=== PATIENT | female | born 1940 | race Caucasian/White ===

== ENCOUNTER 2018-04-05 08:38 | Emergency (ER) | payer OTHER ==
[~2018-04-05] VITALS: Ht 162.6 cm; Wt 131.5 kg
[~2018-04-05 08:38] MED LIST: FLAGYL500 MG PO; LEVAQUIN500 MG PO
[2018-04-05] MEDS: ALBUTEROL SULF 0.083% NEB SOLN 3 ML NEB NEB STA (09:42)
[2018-04-05 09:48] LABS: BASOPHILS # (AUTO) 0.1 (0.0-0.1); BASOPHILS % 0.7 % (0.0-1.0); EOSINOPHILS # (AUTO) 0.3 (0.0-0.4); EOSINOPHILS % 2.3 % (0.0-6.0); HEMATOCRIT 33.2 % (34.2-44.1); HEMOGLOBIN 10.5 g/dL (12.0-16.0); LYMPHOCYTES # (AUTO) 2.2 (1.0-3.2); LYMPHOCYTES % 19.3 % (18.0-39.1); MEAN CORPUSCULAR HEMOGLOBIN 24.9 pg (28-32); MEAN CORPUSCULAR HGB CONC 31.6 g/dL (31-35); MEAN CORPUSCULAR VOLUME 78.7 fL (81-99); MONOCYTES # (AUTO) 0.8 (0.2-0.8); MONOCYTES % 7.3 % (4.4-11.3); NEUTROPHILS # (AUTO) 7.8 (2.1-6.9); NEUTROPHILS % 70.1 % (38.7-80.0); PLATELET COUNT 245 x10e3/uL (140-360); RED BLOOD COUNT 4.22 x10e6/uL (3.6-5.1); RED CELL DISTRIBUTION WIDTH 14.8 % (11.7-14.4)
--- NOTE | 2018-04-05 09:49 | Diagnostic Imaging Report ---
PROCEDURE: CHEST SINGLE (PORTABLE) COMPARISON: 09/13/2017. INDICATIONS: COUGH FINDINGS: The lungs are well-inflated. No focal airspace consolidation, pleural effusion, or pneumothorax. Stable cardiomediastinal contour with mild tortuosity of the thoracic aorta, unchanged. No pulmonary edema. No acute osseous abnormality. CONCLUSION: No acute cardiopulmonary abnormality. Dictated by: Pieter Crowley M.D. on 04/05/2018 at 9:53 Electronically approved by: Pieter Crowley M.D. on 04/05/2018 at 9:53
[2018-04-05 09:55] LABS: INR 1.39
[2018-04-05 09:56] LABS: PARTIAL THROMBOPLASTIN TIME 31.3 seconds (23.8-35.5)
[2018-04-05 10:03] LABS: ALANINE AMINOTRANSFERASE 10 IU/L (0-55); ALBUMIN 3.1 g/dL (3.5-5.0); ALBUMIN/GLOBULIN RATIO 0.9 (0.8-2.0); ALKALINE PHOSPHATASE 76 IU/L (40-150); ANION GAP 13.3 mmol/L (8-16); BLOOD UREA NITROGEN 15 mg/dL (7-26); BUN/CREATININE RATIO 16 (6-25); CALCIUM 9.1 mg/dL (8.4-10.2); CARBON DIOXIDE 27 mmol/L (22-29); CHLORIDE 101 mmol/L (98-107); CREATINE KINASE 31 IU/L (29-168); CREATININE, SERUM 0.93 mg/dL (0.57-1.11); EST GLOMERULAR FILTRATION RATE 59 ML/MIN (60-); GLUCOSE 135 mg/dL (74-118); MAGNESIUM 1.7 MG/DL (1.3-2.1); POTASSIUM 4.3 mmol/L (3.5-5.1); SODIUM 137 mmol/L (136-145)
[2018-04-05 10:36] LABS: CLARITY,URINE CLEAR (CLEAR); COLOR,URINE YELLOW (YELLOW); KETONES,URINE NEGATIVE (NEGATIVE); LEUKOCYTE ESTERASE ,URINE NEGATIVE (NEGATIVE); NITRITE,URINE NEGATIVE (NEGATIVE); PROTEIN,URINE DIPSTICK NEGATIVE (NEGATIVE); URINE UROBILINOGEN 0.2 mg/dL (0.2 - 1)
[2018-04-05 10:37] LABS: BILIRUBIN,URINE NEGATIVE (NEGATIVE)
[2018-04-05 11:13] VITALS: BP 135/52
[2018-04-05 11:17] LABS: EPITHELIAL CELLS,URINE FEW /LPF; RBC,URINE 0-5 /HPF (0-5)
== END 2018-04-05 11:25 | disposition home or self-care (01) ==
LOC: ER 08:38
DX: R06.09 Other forms of dyspnea (principal); R05 Cough; J20.9 Acute bronchitis, unspecified; I50.9 Heart failure, unspecified; Z87.01 Personal history of pneumonia (recurrent)
CPT/HCPCS: 36415; 71045; 80053; 81001; 82550; 82553; 83735; 83880; 84484; 85025; 85610; 85730; 87040; 93005; 94640; 99284

== ENCOUNTER 2018-07-20 13:35 | Inpatient (IN) | payer OTHER ==
[~2018-07-20] VITALS: Ht 162.6 cm; Wt 146.1 kg
[2018-07-20 15:20] LABS: BASOPHILS # (AUTO) 0.1 (0.0-0.1); BASOPHILS % 0.5 % (0.0-1.0); EOSINOPHILS # (AUTO) 0.2 (0.0-0.4); EOSINOPHILS % 2.4 % (0.0-6.0); HEMATOCRIT 32.3 % (34.2-44.1); HEMOGLOBIN 9.9 g/dL (12.0-16.0); LYMPHOCYTES # (AUTO) 1.5 (1.0-3.2); MEAN CORPUSCULAR HEMOGLOBIN 23.1 pg (28-32); MEAN CORPUSCULAR HGB CONC 30.7 g/dL (31-35); MEAN CORPUSCULAR VOLUME 75.3 fL (81-99); MONOCYTES # (AUTO) 0.7 (0.2-0.8); MONOCYTES % 7.4 % (4.4-11.3); NEUTROPHILS # (AUTO) 7.3 (2.1-6.9); NEUTROPHILS % 74.3 % (38.7-80.0); PLATELET COUNT 432 x10e3/uL (140-360); RED BLOOD COUNT 4.29 x10e6/uL (3.6-5.1)
[2018-07-20 15:30] LABS: INR 1.04; PROTHROMBIN TIME 14.5 seconds (11.9-14.5)
[2018-07-20 15:31] LABS: PARTIAL THROMBOPLASTIN TIME 30.9 seconds (23.8-35.5)
[2018-07-20 15:42] LABS: ALANINE AMINOTRANSFERASE 10 IU/L (0-55); ALBUMIN 2.8 g/dL (3.5-5.0); ALBUMIN/GLOBULIN RATIO 0.8 (0.8-2.0); ALKALINE PHOSPHATASE 54 IU/L (40-150); AMYLASE 52 U/L (25-125); ANION GAP 13.9 mmol/L (8-16); BLOOD UREA NITROGEN 19 mg/dL (7-26); BUN/CREATININE RATIO 22 (6-25); CALCIUM 9.3 mg/dL (8.4-10.2); CARBON DIOXIDE 25 mmol/L (22-29); CHLORIDE 100 mmol/L (98-107); CREATINE KINASE 29 IU/L (29-168); CREATININE, SERUM 0.85 mg/dL (0.57-1.11); EST GLOMERULAR FILTRATION RATE > 60 ML/MIN (60-); GLUCOSE 129 mg/dL (74-118); LIPASE 19 U/L (8-78); MAGNESIUM 1.6 MG/DL (1.3-2.1); POTASSIUM 3.9 mmol/L (3.5-5.1); SODIUM 135 mmol/L (136-145)
--- NOTE | 2018-07-20 17:42 | Diagnostic Imaging Report ---
Examination: Single AP view of the chest. COMPARISON: None. INDICATION: Chest pain DISCUSSION: Lines/tubes: None. Lungs: Central pulmonary venous congestion. Nodular opacities in the right lung. Pleura: There is no pleural effusion or pneumothorax. Heart and mediastinum: Cardiomegaly. Bones and soft tissues: No acute bony abnormalities. Degenerative changes in the thoracic spine. IMPRESSION: 1. Cardiomegaly with central venous congestion. 2. Scattered pulmonary nodules in the right lung. Signed by: Dr. Sam Jin M.D. on 07/20/2018 5:38 PM
--- NOTE | 2018-07-20 17:51 | Diagnostic Imaging Report ---
EXAMINATION: CT of the abdomen and pelvis without contrast. TECHNIQUE: Helical CT images of the abdomen and pelvis were performed from the lung bases to the lesser trochanters. No intravenous contrast was given per request. Positive enteric contrast. Coronal and sagittal reformatted images were obtained.Dose modulation, iterative reconstruction, and/or weight based adjustment of the mA/kV was utilized to reduce the radiation dose to as low as reasonably achievable. COMPARISON: None. CLINICAL HISTORY:Stomach pain DISCUSSION: ABSENCE OF INTRAVENOUS CONTRAST DECREASES SENSITIVITY FOR DETECTION OF FOCAL LESIONS AND VASCULAR PATHOLOGY. ABDOMEN/PELVIS: LOWER THORAX: 1 cm right lower lobe nodule 7 cm left lower lobe nodular consolidation. Additional smaller nodules. HEPATOBILIARY:Hepatic cysts in the right lobe, largest 2.6 cm. Gallbladder absent. SPLEEN: No splenomegaly. PANCREAS: No focal masses or ductal dilatation. ADRENALS: No adrenal nodules. KIDNEYS/URETERS: Punctate right renal calculus. No obstruction. No solid mass. PELVIC ORGANS/BLADDER: Bladder is decompressed. Prior hysterectomy. PERITONEUM/RETROPERITONEUM: Large volume ascites. LYMPH NODES: No intra-abdominal,retroperitoneal, pelvic or inguinal lymphadenopathy. VESSELS: Vascular calcifications. GI TRACT: Left lower quadrant colostomy with prior sigmoid resection. Enteric contrast within the stomach and small bowel. No contrast within the colon. BONES AND SOFT TISSUES: No bony destructive lesions. No soft tissue abnormalities. IMPRESSION: Limited computed tomography scan Large volume ascites. Partial colonic resection with left lower quadrant colostomy. No obstruction. Scattered pulmonary nodules. Dedicated CT of the chest, nonemergent recommended. Signed by: Dr. Sam Jin M.D. on 07/20/2018 5:48 PM
[2018-07-20] MEDS ORDERED: DEXTROSE 50% SYRINGE 50 ML IV PRN (20:00)
[2018-07-20] MEDS ORDERED: ONDANSETRON HCL INJ 2 MG/ML VIAL IV PRN (20:00)
[2018-07-20] MEDS ORDERED: FENTANYL CITRATE/PF 100MCG/2 ML INJ IV PRN (20:00)
[2018-07-20] MEDS ORDERED: HYDROCODONE/APAP 5MG-325MG TAB PO PRN (20:00)
[2018-07-20] MEDS ORDERED: ALPRAZOLAM0.5 M1 PO (20:01)
[2018-07-20] MEDS ORDERED: LEVOTHYROXINE50 MCG PO (20:02)
[2018-07-20] MEDS ORDERED: ELIQUIS PO (20:02)
[2018-07-20] MEDS ORDERED: PANTOPRAZOLE SO40 MG PO (20:03)
[2018-07-20] MEDS ORDERED: MIRALAX17 GM PO (20:03)
[2018-07-20] MEDS ORDERED: SERTRALINE HCL50 MG PO (20:04)
[2018-07-20] MEDS ORDERED: POTASSIUM CHLO10 ME1 PO (20:04)
[2018-07-20] MEDS: INSULIN REGULAR, HUMAN 100 UNIT/1 ML 3ML VIAL SQ SCH (21:00)
[2018-07-20] MEDS: SODIUM CHLORIDE 0.9% 1000ML 1,000 ML IV SCH ×2 (21:02→22:06)
[2018-07-20 22:15] VITALS: BP 148/74
[2018-07-21] VITALS (8 sets, daily range): BP systolic 132–148; BP diastolic 59–74
[2018-07-21] MEDS: LEVOTHYROXINE SODIUM 50 MCG TAB PO SCH (01:00)
[2018-07-21 05:21] LABS: BASOPHILS # (AUTO) 0.1 (0.0-0.1); BASOPHILS % 0.5 % (0.0-1.0); EOSINOPHILS # (AUTO) 0.2 (0.0-0.4); EOSINOPHILS % 2.5 % (0.0-6.0); HEMATOCRIT 30.5 % (34.2-44.1); HEMOGLOBIN 9.2 g/dL (12.0-16.0); LYMPHOCYTES # (AUTO) 1.9 (1.0-3.2); LYMPHOCYTES % 19.3 % (18.0-39.1); MEAN CORPUSCULAR HEMOGLOBIN 23.1 pg (28-32); MEAN CORPUSCULAR HGB CONC 30.2 g/dL (31-35); MEAN CORPUSCULAR VOLUME 76.6 fL (81-99); MONOCYTES # (AUTO) 0.9 (0.2-0.8); MONOCYTES % 9.3 % (4.4-11.3); NEUTROPHILS # (AUTO) 6.6 (2.1-6.9); NEUTROPHILS % 68.1 % (38.7-80.0); PLATELET COUNT 388 x10e3/uL (140-360); RED BLOOD COUNT 3.98 x10e6/uL (3.6-5.1); RED CELL DISTRIBUTION WIDTH 16.7 % (11.7-14.4)
[2018-07-21 05:50] LABS: ALANINE AMINOTRANSFERASE 7 IU/L (0-55); ALBUMIN 2.6 g/dL (3.5-5.0); ALBUMIN/GLOBULIN RATIO 0.8 (0.8-2.0); ALKALINE PHOSPHATASE 47 IU/L (40-150); AMYLASE 40 U/L (25-125); ANION GAP 12.9 mmol/L (8-16); BLOOD UREA NITROGEN 19 mg/dL (7-26); BUN/CREATININE RATIO 23 (6-25); CALCIUM 8.7 mg/dL (8.4-10.2); CARBON DIOXIDE 24 mmol/L (22-29); CHLORIDE 102 mmol/L (98-107); CREATININE, SERUM 0.82 mg/dL (0.57-1.11); EST GLOMERULAR FILTRATION RATE > 60 ML/MIN (60-); GLUCOSE 112 mg/dL (74-118); LIPASE 12 U/L (8-78); POTASSIUM 3.9 mmol/L (3.5-5.1); SODIUM 135 mmol/L (136-145)
[2018-07-21] MEDS: INSULIN REGULAR, HUMAN 100 UNIT/1 ML 3ML VIAL SQ SCH ×2 (07:30→11:30)
[2018-07-21] MEDS: SERTRALINE HCL 50 MG TAB PO SCH (08:33)
[2018-07-21] MEDS: PANTOPRAZOLE SOD 40 MG TABEC PO SCH (08:33)
[2018-07-21] MEDS ORDERED: POTASSIUM CHLORIDE 10MEQ EA PO SCH (09:00)
[2018-07-21] MEDS ORDERED: NON-FORMULARY MEDICATION ([Eliquis] 5 MG) PO SCH (09:00)
[2018-07-21] MEDS ORDERED: POLYETHYLENE GLYCOL 3350 17 GM PACK PO SCH (09:00)
[2018-07-21] MEDS ORDERED: APIXABAN 5 MG TABLET PO SCH (09:00)
[2018-07-21] MEDS ORDERED: DEXTROSE 5%/0.9% SOD CHL 1,000 ML IV SCH (12:45)
[2018-07-21] MEDS ORDERED: FUROSEMIDE 40 MG TAB PO ONE (13:00)
[2018-07-21] MEDS: CARVEDILOL 3.125 MG TAB PO SCH (17:07)
[2018-07-21] MEDS: HYDROCODONE/APAP 5MG-325MG TAB PO PRN ×2 (19:00→19:30)
--- NOTE | 2018-07-21 21:06 | Diagnostic Imaging Report ---
Exam: Abdominal film Clinical History: Abdominal pain, ascites Comparison: None. DISCUSSION: No bowel obstruction. Enteric contrast present including within the colon. Abdominal ascites. IMPRESSION: 1. Enteric contrast within the small bowel and colon. 2. Abdominal and pelvic ascites. Signed by: Dr. Sam Jin M.D. on 07/21/2018 9:03 PM
[2018-07-22] VITALS (8 sets, daily range): BP systolic 112–171; BP diastolic 54–70
[2018-07-22] MEDS: LEVOTHYROXINE SODIUM 50 MCG TAB PO SCH (04:56)
[2018-07-22 05:45] LABS: BASOPHILS # (AUTO) 0.1 (0.0-0.1); BASOPHILS % 0.6 % (0.0-1.0); EOSINOPHILS # (AUTO) 0.3 (0.0-0.4); EOSINOPHILS % 3.3 % (0.0-6.0); HEMATOCRIT 30.2 % (34.2-44.1); HEMOGLOBIN 9.3 g/dL (12.0-16.0); LYMPHOCYTES # (AUTO) 1.6 (1.0-3.2); LYMPHOCYTES % 19.1 % (18.0-39.1); MEAN CORPUSCULAR HEMOGLOBIN 23.1 pg (28-32); MEAN CORPUSCULAR HGB CONC 30.8 g/dL (31-35); MEAN CORPUSCULAR VOLUME 74.9 fL (81-99); MONOCYTES # (AUTO) 0.9 (0.2-0.8); MONOCYTES % 9.9 % (4.4-11.3); NEUTROPHILS # (AUTO) 5.7 (2.1-6.9); NEUTROPHILS % 66.6 % (38.7-80.0); PLATELET COUNT 419 x10e3/uL (140-360); RED BLOOD COUNT 4.03 x10e6/uL (3.6-5.1); RED CELL DISTRIBUTION WIDTH 16.7 % (11.7-14.4)
[2018-07-22 06:01] LABS: ANION GAP 14.7 mmol/L (8-16); BLOOD UREA NITROGEN 18 mg/dL (7-26); BUN/CREATININE RATIO 23 (6-25); CALCIUM 8.7 mg/dL (8.4-10.2); CARBON DIOXIDE 23 mmol/L (22-29); CHLORIDE 103 mmol/L (98-107); CREATININE, SERUM 0.78 mg/dL (0.57-1.11); EST GLOMERULAR FILTRATION RATE > 60 ML/MIN (60-); GLUCOSE 107 mg/dL (74-118); MAGNESIUM 1.5 MG/DL (1.3-2.1); POTASSIUM 3.7 mmol/L (3.5-5.1); SODIUM 137 mmol/L (136-145)
[2018-07-22 06:22] LABS: THYROID STIMULATING HORMONE 8.262 uIU/mL (0.350-4.940)
[2018-07-22 06:26] LABS: % IRON SATURATION 6 % (15-50); IRON 18 ug/dL (50-170); TOTAL IRON BINDING CAPACITY 300 ug/dL (261-478); TRANSFERRIN 214 mg/dL (180-382)
[2018-07-22] MEDS: CARVEDILOL 3.125 MG TAB PO SCH ×2 (08:28→17:00)
[2018-07-22] MEDS: ASPIRIN 81 MG ENTERIC COATED PO SCH (08:43)
[2018-07-22] MEDS: SERTRALINE HCL 50 MG TAB PO SCH (08:44)
[2018-07-22] MEDS: PANTOPRAZOLE SOD 40 MG TABEC PO SCH (08:44)
[2018-07-22] MEDS ORDERED: ASPIRIN 325 MG TAB PO SCH (09:00)
--- NOTE | 2018-07-22 11:08 | Diagnostic Imaging Report ---
PROCEDURE:US GUIDED PARACENTESIS COMPARISON:None. INDICATIONS:ASCITES FINDINGS: Informed written consent was obtained. Torque Tester ultrasound demonstrated large volume ascites. The patient was prepped and draped in sterile fashion. Subcutaneous 1% lidocaine was administered. Subsequently a 7 Fr catheter was inserted into the peritoneal space and approximately 1200 cc of serosanguineous fluid was removed. Repeat ultrasound demonstrated decompression of the previously seen ascites with persistent perihepatic ascites. The 7 Fr catheter was removed. After administration of 1% subcutaneous lidocaine, with ultrasound guidance, a 5 Fr catheter was inserted into the perihepatic space with removal of an additional 1400 cc of serosanguineous fluid. No further ascites could be drained, repeat ultrasound demonstrated partial decompression of the perihepatic ascites. The catheter was removed. Bandage was placed. No evidence of immediate complication. Samples were sent to the lab. CONCLUSION: Ultrasound guided diagnostic and therapeutic paracentesis. The patient had symptomatic relief at the termination of the procedure. Dictated by: GLORIA AVENDAÑO M.D. on 07/22/2018 at 11:16 Electronically approved by: GLORIA AVENDAÑO M.D. on 07/22/2018 at 11:16
--- NOTE | 2018-07-22 12:46 | Diagnostic Imaging Report ---
PROCEDURE:IR CONSULT -ULTRASOUND GUIDED PARACENTESIS COMPARISON:None. FINDINGS/CONCLUSION: Please refer to the report from ultrasound guided diagnostic and therapeutic paracentesis performed on the same day for further details. Dictated by: GLORIA AVENDAÑO M.D. on 07/22/2018 at 12:54 Electronically approved by: GLORIA AVENDAÑO M.D. on 07/22/2018 at 12:54
[2018-07-22 13:29] LABS: BODY FLUID TYPE PERITONEAL
[2018-07-22 13:30] LABS: BODY FLUID APPEARANCE SL.CLOUDY; BODY FLUID COLOR RED
[2018-07-22 13:31] LABS: RBC,BODY FLUID 34774 cells/uL; WBC,BODY FLUID 866 cells/uL
[2018-07-22 13:41] LABS: LYMPHOCYTES,BODY FLUID 66 %; MONO/MACROPHG,BODY FLUID 12 %; NEUTROPHILS,BODY FLUID 4 %; OTHER CELLS,BODY FLUID 18 %
[2018-07-22] MEDS: IRON SUCROSE 100 MG in SODIUM CHLORIDE 0.9% 100 ML 100 ML IV SCH (17:05)
[2018-07-22] MEDS: HYDROCODONE/APAP 5MG-325MG TAB PO PRN (19:39)
[2018-07-22] MEDS ORDERED: PREDNISONE 20 MG TAB PO NR (20:00)
[2018-07-23] VITALS (7 sets, daily range): BP systolic 126–151; BP diastolic 58–66
[2018-07-23] MEDS ORDERED: PREDNISONE 20 MG TAB PO NR (06:00)
[2018-07-23] MEDS: LEVOTHYROXINE SODIUM 50 MCG TAB PO SCH (06:05)
[2018-07-23] MEDS ORDERED: FAMOTIDINE 20 MG TAB PO NR (07:00)
[2018-07-23] MEDS ORDERED: DIPHENHYDRAMINE HCL 25 MG CAP PO NR (07:00)
[2018-07-23] MEDS: PANTOPRAZOLE SOD 40 MG TABEC PO SCH (09:00)
[2018-07-23] MEDS: ASPIRIN 81 MG ENTERIC COATED PO SCH (09:00)
[2018-07-23] MEDS: SERTRALINE HCL 50 MG TAB PO SCH (09:00)
[2018-07-23] MEDS: CARVEDILOL 3.125 MG TAB PO SCH ×2 (09:02→17:56)
--- NOTE | 2018-07-23 09:25 | Progress Note ---
DATE: COVERING FOR: Dr. De La Cruz. SUBJECTIVE: The patient had a paracentesis yesterday with 1400 mL of serosanguineous fluid removed. She still has some pain in her abdomen, mostly in the left upper quadrant. She does not complain of any fevers. She does note some dyspnea. OBJECTIVE VITAL SIGNS: Blood pressure is 128/60 and the pulse is 69. The respiratory rate is 18 and saturation is 95% on 2 liters. HEENT: No facial swelling or erythema. LYMPHATICS: No submandibular, cervical, or supraclavicular adenopathy. CARDIAC: Regular rate and rhythm with normal S1 and S2. There are no murmurs or rubs. LUNGS: Auscultation of the lungs reveals decreased breath sounds at the bases. She has no wheezing. ABDOMEN: Soft. Still distended with ascites. EXTREMITIES: There is minimal leg edema. IMPRESSION 1. Ascites of unclear etiology. 2. Pulmonary nodules, predominantly in the right lung. 3. History of coronary artery disease with stent placement. 4. History of perforated diverticulitis, which required a diverting colostomy. PLAN 1. Patient is scheduled for repeat CT of the abdomen and pelvis today. 2. She would also have a CT of the chest to better evaluate her pulmonary nodules. 3. GI consult to rule out any liver disease contributing to the ascites. 4. Gynecologic consult. 5. Urinalysis. 6. Serological testing for any type of ovarian pathology. Case discussed with patient and daughter. Job#: [id number] LOLLY
[2018-07-23] MEDS ORDERED: FAMOTIDINE 20 MG TAB PO ONE (10:00)
[2018-07-23] MEDS ORDERED: DIPHENHYDRAMINE HCL 25 MG CAP PO ONE (10:00)
--- NOTE | 2018-07-23 12:10 | Diagnostic Imaging Report ---
EXAM: CT Chest WITHOUT contrast INDICATION: \S\Pulmonary Nodules \S\[id number] \S\1100 COMPARISON: None TECHNIQUE: Chest was scanned utilizing a multidetector helical scanner from the lung apex through the level of the adrenal glands without administration of IV contrast. Absence of intravenous contrast decreases sensitivity for detection of lymphadenopathy and vascular pathology. Coronal and sagittal reformations were obtained. Routine protocol was performed. IV CONTRAST: None COMPLICATIONS: None RADIATION DOSE: Total DLP: 2150.32 mGy*cm Estimated effective dose: (DLP x 0.014 x size factor) mSv CTDIvol has been reviewed. It is below the limits set by the Radiation Protocol Committee (RPC). FINDINGS: LINES/ TUBES: None. LUNGS AND AIRWAYS: Numerous bilateral lung nodules, the largest in the right inferior lobe measures 1.2 cm (series 3, image 36). The largest nodule in right upper lobe measures 1.2 cm (3/21). Mild opacification of the posterior left base (series 3, image 41). Airways are normal. PLEURA: Trace right pleural effusion. No pneumothorax. HEART AND MEDIASTINUM: The thyroid gland is normal. No mediastinal, hilar or axillary lymphadenopathy. The heart is borderline in size. There is no pericardial effusion. Main pulmonary artery measures 3 cm. Moderate atherosclerotic calcification of LAD. UPPER ABDOMEN: Please see the dedicated abdomen/pelvis CT of the same date. Cirrhotic liver. Multiple hepatic hypodensities. Large volume ascites. BONES: The visualized bony thorax is within normal limits. SOFT TISSUES: Unremarkable. IMPRESSION: Numerous bilateral lung nodules, likely metastatic. Posterior left base focal mild opacification, could represent atelectasis versus developing pneumonia. Signed by: Dr. Vijay Trejo MD on 07/23/2018 12:06 PM
--- NOTE | 2018-07-23 12:36 | Diagnostic Imaging Report ---
EXAM: CT Abdomen and Pelvis WITH contrast INDICATION: \S\abdominal pain \S\[id number] \S\1100 COMPARISON: CT dated 07/20/2018 TECHNIQUE: Abdomen and pelvis were scanned utilizing a multidetector helical scanner from the lung base to the pubic symphysis after administration of IV contrast. Coronal and sagittal reformations were obtained. Dose modulation, iterative reconstruction, and/or weight based adjustment of the mA/kV was utilized to reduce the radiation dose to as low as reasonably achievable. Routine protocol was performed. Scan was performed when during portal venous phase. IV CONTRAST: 100 mL of Isovue-370 ORAL CONTRAST: Water COMPLICATIONS: None RADIATION DOSE: Total DLP: 2150.3 mGy*cm Estimated effective dose: (DLP x 0.015 x size factor) mSv CTDIvol has been reviewed. It is below the limits set by the Radiation Protocol Committee (RPC). FINDINGS: LINES and TUBES: None. LOWER THORAX: Please refer to the dedicated chest CT report of the same date. HEPATOBILIARY: Cirrhotic changes of the liver. Again seen numerous hepatic hypodensities. No biliary ductal dilation. GALLBLADDER: Surgically absent. SPLEEN: No splenomegaly. Punctate calcified granuloma. PANCREAS: No focal masses or ductal dilatation. ADRENALS: No adrenal nodules KIDNEYS/URETERS: Kidneys enhance symmetrically. No hydronephrosis. No cystic or solid mass lesions. No stones. GI TRACT: Prior sigmoid resection. Left lower quadrant colostomy. Retained contrast within colon, probably from prior exam. PELVIC ORGANS/BLADDER: Hysterectomy. Bladder is collapsed, limiting evaluation. LYMPH NODES: 1.3 cm portacaval lymph node (05/05). 1.5 cm gastrohepatic lymph node (04/28). Multiple cardiophrenic lymph nodes. VESSELS: Unremarkable. PERITONEUM / RETROPERITONEUM: No free air. Moderate to large volume ascites, unchanged from prior exam. Questionable omental irregularities (series 7, image 39 or image 55). 1 cm omental nodule (series 7, image 42). Additional peritoneal nodules in right upper quadrant (series 7, image 23 and 18). BONES: Unremarkable. SOFT TISSUES: Unremarkable. Midline lower abdominal wall scar. IMPRESSION: 1. Moderate to large volume ascites, not significantly changed from prior exam. 2. Status post partial sigmoid resection with left lower quadrant colostomy. 3. Areas of omental irregularity and peritoneal nodules as described above, concerning for omental/peritoneal carcinomatosis. 4. Mildly nodular hepatic contour, concerning for cirrhotic changes. There are numerous hepatic hypodensities, which cannot be fully characterized on this single phase study. Liver mass protocol MRI can be obtained for characterization. Signed by: Dr. Vijay Trejo MD on 07/23/2018 12:33 PM
[2018-07-23] MEDS: IRON SUCROSE 100 MG in SODIUM CHLORIDE 0.9% 100 ML 100 ML IV SCH (16:55)
[2018-07-23] MEDS ORDERED: IOPAMIDOL 370 MG/ML 200 ML INFUS..BTL INJ ONE (17:38)
[2018-07-23] MEDS ORDERED: SODIUM CHLORIDE 0.9% 50ML 50 ML ONE (17:38)
[2018-07-23 21:37] LABS: CLARITY,URINE CLEAR (CLEAR); COLOR,URINE YELLOW (YELLOW); LEUKOCYTE ESTERASE ,URINE NEGATIVE (NEGATIVE); NITRITE,URINE NEGATIVE (NEGATIVE); PROTEIN,URINE DIPSTICK TRACE (NEGATIVE)
[2018-07-23 21:38] LABS: BILIRUBIN,URINE 1+ (NEGATIVE); KETONES,URINE NEGATIVE (NEGATIVE); URINE UROBILINOGEN 0.2 mg/dL (0.2 - 1)
[2018-07-23 21:39] LABS: EPITHELIAL CELLS,URINE MANY /LPF; WBC,URINE (MAN) 0-5 /HPF (0-5)
[2018-07-24] VITALS (7 sets, daily range): BP systolic 135–160; BP diastolic 63–71
[2018-07-24 04:58] LABS: BASOPHILS % 0.1 % (0.0-1.0); HEMATOCRIT 28.7 % (34.2-44.1); HEMOGLOBIN 8.7 g/dL (12.0-16.0); LYMPHOCYTES # (AUTO) 1.7 (1.0-3.2); LYMPHOCYTES % 11.7 % (18.0-39.1); MEAN CORPUSCULAR HEMOGLOBIN 23.3 pg (28-32); MEAN CORPUSCULAR HGB CONC 30.3 g/dL (31-35); MEAN CORPUSCULAR VOLUME 76.9 fL (81-99); MONOCYTES % 6.7 % (4.4-11.3); NEUTROPHILS # (AUTO) 11.7 (2.1-6.9); NEUTROPHILS % 80.9 % (38.7-80.0); PLATELET COUNT 346 x10e3/uL (140-360); RED BLOOD COUNT 3.73 x10e6/uL (3.6-5.1); RED CELL DISTRIBUTION WIDTH 17.1 % (11.7-14.4)
[2018-07-24 05:18] LABS: ALANINE AMINOTRANSFERASE 7 IU/L (0-55); ALBUMIN 2.5 g/dL (3.5-5.0); ALBUMIN/GLOBULIN RATIO 0.7 (0.8-2.0); ALKALINE PHOSPHATASE 49 IU/L (40-150); BLOOD UREA NITROGEN 16 mg/dL (7-26); BUN/CREATININE RATIO 23 (6-25); CARBON DIOXIDE 22 mmol/L (22-29); CHLORIDE 105 mmol/L (98-107); CREATININE, SERUM 0.71 mg/dL (0.57-1.11); EST GLOMERULAR FILTRATION RATE > 60 ML/MIN (60-); GLUCOSE 126 mg/dL (74-118); SODIUM 140 mmol/L (136-145)
[2018-07-24] MEDS: LEVOTHYROXINE SODIUM 50 MCG TAB PO SCH (05:27)
[2018-07-24] MEDS: PANTOPRAZOLE SOD 40 MG TABEC PO SCH (08:40)
[2018-07-24] MEDS: CARVEDILOL 3.125 MG TAB PO SCH ×2 (08:40→16:56)
[2018-07-24] MEDS: SERTRALINE HCL 50 MG TAB PO SCH (08:40)
[2018-07-24] MEDS: ASPIRIN 81 MG ENTERIC COATED PO SCH (08:40)
[2018-07-24 11:37] LABS: CHOL/HDL RATIO 4.7 (3.0-3.6)
[2018-07-24] MEDS: APIXABAN 5 MG TABLET PO SCH (13:04)
--- NOTE | 2018-07-24 14:16 | Progress Note ---
DATE: SUBJECTIVE: The chest CT shows multiple pulmonary nodules. The repeat abdominal CT shows peritoneal mets and ascites. OBJECTIVE VITAL SIGNS: The blood pressure is 145/66 and the pulse ox is 95% on room air. Pulse is 63 and respiratory rate is 17. HEENT: Shows no facial swelling or erythema. CARDIAC: Reveals regular rate and rhythm with normal S1 and S2. There are no murmurs or rubs. LUNGS: Auscultation of the lung reveals decreased breath sounds at the bases. ABDOMEN: Soft. There is some ascites. There is no rebound or guarding. EXTREMITIES: Show no leg edema or calf tenderness. There is no cyanosis or clubbing. SKIN: Shows no rashes. IMPRESSION 1. Metastatic cancer with peritoneal metastases and multiple lung metastases. 2. Ascites. 3. Possible liver metastasis. 4. History coronary artery disease with prior stent placement. 5. History of perforated diverticulitis. 6. History of prior cerebrovascular accident. PLAN 1. Patient will need to cytological examination of the peritoneal fluid. 2. Oncology consultation. EVAN QUESADA MD Job#: [id number] PAT
[2018-07-24] MEDS: IRON SUCROSE 100 MG in SODIUM CHLORIDE 0.9% 100 ML 100 ML IV SCH (16:56)
[2018-07-24] MEDS: ALPRAZOLAM 0.5 MG TAB PO PRN (20:27)
--- NOTE | 2018-07-24 21:55 | Consultation ---
DATE OF CONSULTATION: GI CONSULTATION REFERRING PHYSICIAN: Dr. Avila (sp?) REASON FOR CONSULTATION: Abdominal pain. HISTORY OF PRESENT ILLNESS: Ms. Naomi Farrar is a 78-year-old lady with known history of CHF, diabetes, hypertension, hyperlipidemia, CVA, GERD, UTI, who comes into the hospital with complaints of abdominal pain and decreased colostomy output for 4 days. She said she had a colostomy last August by Dr. Hurley and was told she had diverticulitis. She had a paracentesis. She had a CT scan of the abdomen done, which showed some ascites and subsequently a paracentesis 1400 of serosanguineous fluid removed. CAT scan of the abdomen, which was repeated with contrast shows pulmonary nodules predominantly in her right lung, cirrhotic changes of the liver, multiple hepatic hypodensities worrisome for neoplasm. I am unable to get access to the computer, but I have been reviewing all the paper records and as much computer records as possible. PAST MEDICAL HISTORY: CHF, hypertension, diabetes, GERD, status post colostomy a year ago. PAST SURGICAL HISTORY: Cholecystectomy, tonsillectomy, colostomy a year ago, appendectomy. MEDICATIONS: Please see MAR. ALLERGIES: TO IODINE AND CODEINE. PHYSICAL EXAMINATION: VITAL SIGNS: Stable, afebrile. GENERAL: She is morbidly obese, weighing more than 400 pounds, alert and oriented x3, in no acute distress. HEENT: Anicteric. LUNGS: Clear to auscultation. CVS: S1 and S2 normal. No murmur. ABDOMEN: Soft. Presence of the colostomy. LABS AND X-RAYS: White count is normal, hemoglobin 8.7, platelets normal at 346,000. Comp is normal except for glucose 129. Cardiac enzymes are normal. CAT scan as above, cirrhosis, cirrhotic liver, pulmonary nodules, liver nodules. IMPRESSION: New-onset ascites probably from cirrhosis, and with the new liver lesions, we would need to rule out hepatocellular carcinoma, possible metastasis to the lungs versus metastatic cancer of unknown etiology with spread to the liver and the lungs. RECOMMENDATIONS AND PLAN: Hepatitis serology, ALIZA, ASMA, AMA to rule out autoimmune hepatitis or PBC, alpha-fetoprotein, CEA, CA 19-9 tumor markers. Will await ascitic fluid cytology. Oncology consultation. Further recommendations pending hospital course. Job#: [id number]
[2018-07-25] VITALS: BP 141/63
--- NOTE | 2018-07-25 00:53 | Consultation ---
DATE OF CONSULTATION: July 24, 2018 REQUESTING PHYSICIAN: Dr. Saman Vargas SERVICE: Hematology/oncology. REASON FOR CONSULTATION: Evaluation and management of patient presented with recurrent ascites and abdominal pain. HISTORY OF PRESENTING ILLNESS: Ms. Farrar is a very pleasant 78-year-old female with multiple medical problems including known history of hypertension, osteoarthritis, and diagnosis of colon cancer now presented to the emergency department due abdominal pain. She underwent workup including CT scan of the chest, abdomen and pelvis revealing [id number] volume ascites, peritoneal carcinomatosis, and numerous hepatic hypodensities suspicious for metastatic disease. CT of chest also revealed innumerable bilateral lung nodules consistent with metastatic disease. Hematology-oncology has been consulted to assist with the management. Presently, patient is lying comfortably. However, still having abdominal pain. Belly is distended. She has been feeling fatigued and tired. Lately, her level has significantly went down. Daughter is at bedside. PAST MEDICAL HISTORY 1. Hypertension. 2. Osteoarthritis. 3. History of stage-II colon cancer diagnosed back in August 2017. PAST SURGICAL HISTORY: 1. Left-sided hemicolectomy on September 06, 2017. 2. Left lower quadrant colostomy. SOCIAL HISTORY: Patient is . Denies history of smoking, alcohol use, or illicit drug use. She lives independently. FAMILY HISTORY: Positive for hypertension. ALLERGIES: Codeine and iodine. CURRENT MEDICATIONS: Reviewed and as per electronic medical record. REVIEW OF SYSTEMS: A 14-point review of systems negative except as mentioned in history of presenting illness. PHYSICAL EXAMINATION VITAL SIGNS: Reviewed and as per electronic medical record. HEENT: Head atraumatic, normocephalic. NECK: Supple. CVS: S1, S2 audible. RESPIRATORY: Decreased bilateral air entry. ABDOMEN: Soft, positive bowel sounds. EXTREMITIES: Positive edema. NEURO: Patient is alert, awake. LABORATORY DATA: White blood cell count of 14.4, hemoglobin 8.7, hematocrit 28.7, platelet 356,000. BUN 16, creatinine 0.7. ASSESSMENT AND PLAN: Ms. Farrar is a very pleasant 78-year-old female with complicated past medical history including known history of stage-II colon cancer for which he was diagnosed back in August 2017. At that time, she was presented with perforated acute diverticulitis, subsequently underwent exploratory laparotomy with sigmoid resection and colostomy. Pathology revealed mild to moderately differentiated adenocarcinoma with pathologic staging PT3N0 (stage II). Patient did not receive any systemic adjuvant chemotherapy. Now, she has presented with progressive abdominal distention and pain. Hematology/oncology has been consulted to assist with the management. I had a lengthy discussion with the patient about her condition, status, which is suggestive of more of metastatic colon cancer with metastasis to the peritoneum, liver, and lungs. Clinical presentation is consistent with history of colon cancer, though I would like to get tumor marker profile especially with the CEA, CA 19-9 and CA-125. Patient already had ascitic cap with some relief, but still having abdominal discomfort. If this turns out to be a metastatic colon cancer based on the tumor marker profile, then treatment would be palliative in nature with systemic chemotherapy versus supportive care. This has been discussed at length with the patient and her daughter. Patient also has anemia, though counts stable at this point. Will closely monitor. Thank you for the consult. I will continue to be available. Please call with questions. Job#: [id number]
[2018-07-25 04:00] VITALS: BP 120/55
[2018-07-25] MEDS: LEVOTHYROXINE SODIUM 50 MCG TAB PO SCH (05:42)
[2018-07-25 08:33] VITALS: BP 151/68
[2018-07-25 08:34] VITALS: BP 151/68
[2018-07-25] MEDS: SERTRALINE HCL 50 MG TAB PO SCH (09:20)
[2018-07-25] MEDS: APIXABAN 5 MG TABLET PO SCH (09:20)
[2018-07-25] MEDS: ASPIRIN 81 MG ENTERIC COATED PO SCH (09:20)
[2018-07-25] MEDS: PANTOPRAZOLE SOD 40 MG TABEC PO SCH (09:20)
[2018-07-25] MEDS: CARVEDILOL 3.125 MG TAB PO SCH ×2 (09:21→16:46)
[2018-07-25] MEDS: ALPRAZOLAM 0.5 MG TAB PO PRN (14:31)
[2018-07-25 20:00] VITALS: BP 122/67
[2018-07-25 21:05] VITALS: BP 115/55
[2018-07-26 00:06] VITALS: BP 148/67
[2018-07-26 04:37] VITALS: BP 126/57
[2018-07-26] MEDS: LEVOTHYROXINE SODIUM 50 MCG TAB PO SCH (05:18)
[2018-07-26] MEDS: ASPIRIN 81 MG ENTERIC COATED PO SCH (08:25)
[2018-07-26] MEDS: SERTRALINE HCL 50 MG TAB PO SCH (08:26)
[2018-07-26] MEDS: CARVEDILOL 3.125 MG TAB PO SCH (08:26)
[2018-07-26] MEDS: PANTOPRAZOLE SOD 40 MG TABEC PO SCH (08:26)
[2018-07-26] MEDS: APIXABAN 5 MG TABLET PO SCH (08:26)
[2018-07-26 08:43] VITALS: BP 153/68
[2018-07-26 12:27] VITALS: BP 140/63
--- NOTE | 2018-07-26 13:09 | Discharge Summary ---
PRIMARY CARE DOCTOR: Dr. Steven Gómez with [facility]. FINAL DIAGNOSIS: Malignant ascites due to metastatic colon cancer. SECONDARY DIAGNOSES 1. Iron deficiency anemia 2. Atrial fibrillation. 3. Coronary artery disease with drug-eluting stent placed 6 months ago. 4. Morbid obesity. 5. Pulmonary, liver and peritoneal metastases. CONSULTANTS 1. Dr. Cornejo, oncology. 2. Dr. Rothman, gastrointestinal. PROCEDURES/STUDIES PERFORMED 1. Paracentesis. 2. Chest/abdomen/pelvis computed tomography. HISTORY: Per H&P. HOSPITAL COURSE: Patient underwent thoracentesis with 1.4 liters of ascites removed. However, her ascites came back within [address] of the abdomen, pelvis and chest was repeated with IV contrast which showed pulmonary, hepatic and peritoneal metastases. I had a long conversation with the patient, her daughter and her granddaughter. Patient does not want any chemotherapy. The final decision was to go home on home hospice. Patient was seen and examined today. It took 32 minutes total to discharge this patient. CONDITION ON DISCHARGE: Hospice. DISCHARGE MEDICATIONS: Comfort pack per hospice. PAXTON CROWLEY M.D. Job#: [id number] EV cc:STEVEN GÓMEZ M.D.
[2018-07-26 14:00] VITALS: BP 146/66
--- NOTE | 2018-07-26 21:39 | Progress Note ---
DATE: CHIEF COMPLAINT: The patient with metastatic colon cancer, admitted due to abdominal pain. VITAL SIGNS: Reviewed. LABORATORY DATA: Reviewed. Ms. Farrar is a very pleasant 78-year-old female with complicated past medical history, known history of stage II colon cancer for which she was diagnosed back in August 2017. At that time, she presented for the acute diverticulitis. Subsequently underwent exploratory laparotomy and sigmoid resection and colostomy. Pathology revealed mild to moderately differentiated adenocarcinoma with pathologic stage pT3 N0. The patient did not receive any systemic adjuvant chemotherapy. Currently, she is present with abdominal distension and pain. She was noted to have widely metastatic disease. The patient has elected supportive care. She has been discharged with hospice. We will respect the patient's wishes. Job#: [id number] GEN
== END 2018-07-26 16:00 | disposition hospice, home (50) | DRG 375 ==
LOC: ER 13:35 → ERHOLD 20:08 → IMCU 21:02 → OBSVTOIN 07-23 15:16
PROVIDERS: ADMIT Internal Medicine; ATTEND Internal Medicine
PROC: 0W9G3ZX Drainage of Peritoneal Cavity, Percutaneous Approach, Diagnostic (ICD-10-PCS; principal; 2018-07-22)
DX: C78.6 Secondary malignant neoplasm of retroperitoneum and peritoneum (principal); R18.0 Malignant ascites; C78.7 Secondary malignant neoplasm of liver and intrahepatic bile duct; C78.02 Secondary malignant neoplasm of left lung; C78.01 Secondary malignant neoplasm of right lung; Z68.43 Body mass index [BMI] 50.0-59.9, adult; Z87.891 Personal history of nicotine dependence; I11.0 Hypertensive heart disease with heart failure; I50.9 Heart failure, unspecified; I25.2 Old myocardial infarction; E11.9 Type 2 diabetes mellitus without complications; E78.5 Hyperlipidemia, unspecified; K21.9 Gastro-esophageal reflux disease without esophagitis; Z86.73 Personal history of transient ischemic attack (TIA), and cerebral infarction without residual deficits; Z99.3 Dependence on wheelchair; Z95.5 Presence of coronary angioplasty implant and graft; Z82.49 Family history of ischemic heart disease and other diseases of the circulatory system; Z88.5 Allergy status to narcotic agent; Z91.048 Other nonmedicinal substance allergy status; I48.91 Unspecified atrial fibrillation; Z79.01 Long term (current) use of anticoagulants; E66.01 Morbid (severe) obesity due to excess calories; I25.10 Atherosclerotic heart disease of native coronary artery without angina pectoris; Z93.3 Colostomy status; Z85.038 Personal history of other malignant neoplasm of large intestine; D50.9 Iron deficiency anemia, unspecified
CPT/HCPCS: 36415; 49083; 71045; 71250; 74018; 74176; 74177; 74470; 80048; 80053; 80061; 81001; 82040; 82105; 82150; 82378; 82550; 82553; 82948; 83540; 83605; 83690; 83735; 84443; 84466; 84484; 85025; 85610; 85730; 86039; 86255; 86301; 86304; 87070; 87205; 88112; 88305; 88342; 89051; 93005; 99284; G0378; J1756; J7030; J7042; J7512; Q9967